=== PATIENT | male | born 1965 | race Caucasian/White ===

== ENCOUNTER 2019-01-14 17:54 | Inpatient (IN) | payer MEDICAID ==
[~2019-01-14] VITALS: Ht 149.9 cm; Wt 59.0 kg
[2019-01-14] MEDS ORDERED: ASPIRIN 81 MG TAB PO STA (18:07)
[2019-01-14] MEDS ORDERED: SOD CHLORIDE 0.9% 1,000 ML IV STA (18:07)
[2019-01-14] MEDS ORDERED: SOD CHLORIDE 0.9% 100 ML ONE (18:12)
[2019-01-14] MEDS ORDERED: IOHEXOL 100 ML ONE (18:12)
[2019-01-14] MEDS ORDERED: ALTEPLASE 100 MG INJ IV* ONE (18:30)
[2019-01-14] MEDS ORDERED: ALTEPLASE (tPA) 1 MG/ML BOLUS SYG IV* ONE (18:30)
[2019-01-14] MEDS ORDERED: SOD CHLORIDE 0.9% 50 ML IV ONE (18:30)
--- NOTE | 2019-01-14 18:50 | ERD ---
ER Documentation Chief Complaint Chief Complaint LEFT SIDED FACIAL/ARM/LEG WEAKNESS X 2 HRS HPI 54-year-old man presents with left upper extremity weakness, paresthesias to the left hemibody, and mild gait ataxia beginning about 2 hours prior to arrival. Patient denies slurred speech, no headache, no blurry vision, no complaints of chest pain or shortness of breath. Patient denies similar symptoms in the past and states symptoms began 2 hours ago spontaneously ROS All systems reviewed and are negative except as per history of present illness. Allergies Allergies: Coded Allergies: No Known Allergy (Unverified , 01/14/19) PMhx/Soc None Medical and Surgical Hx: pt denies Surgical Hx Hx Cardiac Disorders: Yes (htn) Hx Alcohol Use: No Hx Substance Use: No Hx Tobacco Use: No Smoking Status: Never smoker FmHx Family History: No diabetes Physical Exam Vitals Vital Signs Date Temp Pulse Resp B/P (MAP) Pulse Ox O2 O2 Flow FiO2 Time Delivery Rate 01/14/19 99.0 88 16 158/99 99 Room Air 18:39 (118) 01/14/19 Nasal 18:29 Cannula 01/14/19 99.0 84 16 160/88 99 18:00 (112) Physical Exam GENERAL: Well-developed, well-nourished, well-hydrated, in no apparent distress, looks nontoxic in appearance, afebrile HEENT: Moist mucous membranes, pink conjunctiva, no cervical spine tenderness or step-off deformities, no goiter, no jaundice or icterus, extraocular movements intact without pain. 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 Normoactive bowel sounds SKIN: Warm and dry to touch, no abrasions, contusions, or hematomas, no lacerations, no ecchymosis, no target lesions, and without ulcers EXTREMITIES: No clubbing cyanosis or edema, calves are bilaterally symmetrical, no Homans sign, no popliteal cord sign. Distal pulses equal and bilateral PSYCH: Normal affect without agitation or irritability Result Diagram: 01/15/19 0459 01/15/19 0459 Results 24 hrs Laboratory Tests Test 01/14/19 18:15 01/14/19 18:44 01/14/19 19:30 White Blood Count 7.6 10^3/ul Red Blood Count 5.44 10^6/ul Hemoglobin 15.8 g/dl Hematocrit 45.8 % Mean Corpuscular Volume 84.2 fl Mean Corpuscular Hemoglobin 29.0 pg Mean Corpuscular 34.5 g/dl Hemoglobin Concent Red Cell Distribution Width 12.6 % Platelet Count 287 10^3/UL Mean Platelet Volume 9.7 fl Immature Granulocytes % 0.300 % Neutrophils % 73.3 % Lymphocytes % 18.9 % Monocytes % 5.4 % Eosinophils % 1.7 % Basophils % 0.4 % Nucleated Red Blood Cells % 0.0 /100WBC Immature Granulocytes # 0.020 10^3/ul Neutrophils # 5.6 10^3/ul Lymphocytes # 1.4 10^3/ul Monocytes # 0.4 10^3/ul Eosinophils # 0.1 10^3/ul Basophils # 0.0 10^3/ul Nucleated Red Blood Cells # 0.0 10^3/ul Prothrombin Time 11.8 Sec Prothrombin Time Ratio 0.9 INR International 0.86 Normalized Ratio Activated Partial Thromboplast 25.4 Sec Time Sodium Level 139 mmol/L Potassium Level 3.6 mmol/L Chloride Level 104 mmol/L Carbon Dioxide Level 25 mmol/L Anion Gap 10 Blood Urea Nitrogen 10 mg/dl Creatinine 0.86 mg/dl Est Glomerular Filtrat > 60 mL/min Rate mL/min Glucose Level 112 mg/dl Hemoglobin A1c 5.2 % Calcium Level 9.1 mg/dl Total Bilirubin 0.5 mg/dl Direct Bilirubin 0.00 mg/dl Indirect Bilirubin 0.5 mg/dl Aspartate Amino 34 IU/L Transf (AST/SGOT) Alanine 46 IU/L Aminotransferase (ALT/SGPT) Alkaline Phosphatase 101 IU/L Creatine Kinase 99 IU/L Creatine Kinase Index 0.7 Creatinine Kinase MB (Mass) 0.66 ng/ml Troponin I < 0.012 ng/ml Total Protein 8.1 g/dl Albumin 4.5 g/dl Globulin 3.60 g/dl Albumin/Globulin Ratio 1.25 Triglycerides Level 197 mg/dl Cholesterol Level 230 mg/dl LDL Cholesterol, Calculated 159 mg/dl HDL Cholesterol 32 mg/dl Cholesterol/HDL Ratio 7.1 RATIO Ethyl Alcohol Level < 10.0 mg/dl Bedside Glucose 108 mg/dL Urine Color COLORLESS Urine Clarity CLEAR Urine pH 7.0 Urine Specific [place] 1.025 Urine Ketones NEGATIVE mg/dL Urine Nitrite NEGATIVE mg/dL Urine Bilirubin NEGATIVE mg/dL Urine Urobilinogen NEGATIVE mg/dL Urine Leukocyte Esterase NEGATIVE Quinn/ul Urine Hemoglobin NEGATIVE mg/dL Urine Glucose NEGATIVE mg/dL Urine Total Protein NEGATIVE mg/dl Urine Opiates Screen Negative Urine Barbiturates Negative Urine Amphetamines Screen Negative Urine Benzodiazepines Screen Negative Urine Cocaine Screen Negative Urine Cannabinoids Negative Current Medications Medications Dose Sig/Rima Start Time Status Last (Trade) Ordered Route PRN Stop Time Admin Dose Reason Admin Alteplase, 5.3 mg BOLUS OVER 1 01/14/19 DC Recombinant MIN ONCE 18:30 (Activase) IV* 01/14/19 18:31 Alteplase, 47.8 mg ISCHEMIC 01/14/19 DC Recombinant STROKE ONCE 18:30 (Activase) IV* 01/14/19 18:31 Sodium 50 ml @ 0 FLUSH AFTER 01/14/19 DC Chloride mls/hr TPA ONCE IV 18:30 01/14/19 18:31 Sodium 1,000 ml @ Q1H STAT 01/14/19 DC 01/14/19 Chloride 1,000 mls/hr IV 18:07 18:47 01/14/19 19:06 Aspirin 162 mg ONCE STAT 01/14/19 DC 01/14/19 (Aspirin) PO 18:07 18:46 01/14/19 18:09 IV Flush 10 ml STK-MED 01/14/19 DC (NS 10 ml) ONCE .ROUTE 18:12 01/14/19 18:13 Sodium 100 ml @ ud STK-MED 01/14/19 DC Chloride ONCE .ROUTE 18:12 01/14/19 18:13 Iohexol 100 ml @ ud STK-MED 01/14/19 DC ONCE .ROUTE 18:12 01/14/19 18:13 Procedures/MDM IV line was established patient was placed on gambling monitor rhythm strip revealed a sinus rhythm at about 80 bpm with upright P and T waves. Patient was afebrile Code stroke was called and patient was rushed to radiology department, CT scan of the brain was negative for acute bleed mass or shift. CT angiogram of the brain and neck was performed, no large vessel occlusion noted, please refer to radiologist dictation for full report. Chest X-ray 1V Interpreted by me: Soft Tissue: No acute abnormalities Bones: No acute abnormalities Mediastinum/Cardiac Silhouette/Lungs: No acute abnormalities Tele-neurology was contacted and saw the patient at the bedside, his earlier mild left-sided deficits resolved completely, neurologist calculated NIH stroke score was 0, no indication for TPA although he did recommend admission for TIA work-up. I administered aspirin 324 mg p.o. for neuro protective measures. CBC and electrolytes were normal, liver function tests are normal, troponin was negative EKG performed, read by me: 86 bpm, normal sinus rhythm, normal axis, no acute ST segment changes, narrow QRS complex, with good R-wave progression in precordial leads. Critical Care: Time: 48 minutes, this was time separate from other billable procedures. Treatments/Evaluations: Close monitoring and treatment of unstable vital signs, cardiorespiratory, and neurologic status, while maintaining tight balance of fluid, respiratory, and cardiac interventions. Patient will be admitted to telemetry setting for TIA rule out stroke and hypertension. Departure Diagnosis: Primary Impression: TIA (transient ischemic attack) Additional Impression: Hypertension Hypertension type: essential hypertension Qualified Codes: I10 - Essential (primary) hypertension Condition: MATT Appiah MD Jan 14, 2019 18:50
--- NOTE | 2019-01-14 18:53 | CONS ---
DATE OF ADMISSION: 01/14/2019 DATE OF CONSULTATION: 01/14/2019 REASON FOR CONSULTATION: I was asked to see the patient for left-sided weakness. HISTORY OF PRESENT ILLNESS: The patient is a 54-year-old male with past medical history of hypertens ion, who noticed acute onset of left-sided weakness at 4:20 local time. The patient noticed numbness of his left arm as well as weakness of his left hand, but symptoms have subsequently resolved. The patient has had no prior history of intraparenchymal hemorrhage, no prior history of stroke or TIA. The patient does feel back to his baseline. He denied any symptoms of diplopia, difficulty speaking. The patient does not take any anticoagulants. He reports no recent illness. PHYSICAL EXAMINATION: NEUROLOGIC: On assessment, the patient had a full NIH stroke scale score completed. He scored a 0. IMAGING DATA: The patient's imaging was read as normal per radiology. ASSESSMENT: This patient has had a TIA. The patient should have an aspirin 81 mg now. He should be hydrated with saline. He should have an MRI of his brain with an MRA of his neck. I would keep him on telemetry for monitoring for irregularity of heart rhythm. He should have high-dose atorvastatin 80 mg and should be followed with close neuro checks. We should be informed if he has any neurologi c changes. I communicated my findings to the emergency department physician. Dictated By: JUAN DAVID THOMSON CM/KIT Conf#: [id number] DID#: [id number]
[2019-01-14] MEDS ORDERED: hydrALAzine 20 MG INJ IV PRN (20:30)
[2019-01-14] MEDS ORDERED: DOCUSATE SODIUM 100 MG CAP PO PRN (20:30)
[2019-01-14] MEDS ORDERED: ONDANSETRON 4 MG INJ IV PRN (20:30)
[2019-01-14] MEDS ORDERED: ACETAMINOPHEN 325 MG TAB PO PRN (20:30)
[2019-01-14] MEDS ORDERED: NACL 0.9% 3 ML SYG IV SCH (20:30)
[2019-01-14] MEDS ORDERED: BISACODYL (EC) 5 MG TAB PO PRN (20:30)
[2019-01-14] MEDS ORDERED: LORAZEPAM 2 MG INJ IV PRN (20:30)
--- NOTE | 2019-01-14 20:30 | HP ---
Date/Time of Note Date/Time of Note DATE: 01/14/19 TIME: 20:29 Assessment/Plan VTE Prophylaxis SCD applied (from Nsg): Yes Pharmacological prophylaxis: NA/contraindicated Pharm contraindication: low risk/ambulating Lines/Catheters IV Catheter Type (from Nrsg): Saline Lock Assessment/Plan Hospital Course This is a 54-year-old male being admitted to the telemetry floor for: #1 left-sided numbness and weakness: Rule out CVA versus TIA. Patient's imaging studies so far negative. Patient does though report he still has numbness of the left face as well as the left upper extremity. There is some decreased rf engineer strength of the left upper extremity. At the current time we will continue the patient on permissive hypertension and treat with hydralazine for blood pressure greater than 220/120. SCDs. Will check hemoglobin A1c, lipid panel, TSH. Aspirin 81 mg and high-dose statin. Will check an echocardiogram with bubble study. Neurochecks every 4 hours. MRI of the brain and MRA of the head and neck have been ordered. PT OT speech evaluation. Will consult neurology #2 hyperlipidemia: Check lipid panel, high-dose statin #3 DVT GI prophylaxis: SCDs, no GI prophylaxis indicated Further treatment strategy will be implemented as per the clinical course. Result Diagram: 01/14/19181401/14/191814 Results 24hrs Laboratory Tests Test 01/14/19 18:15 01/14/19 18:44 01/14/19 19:30 White Blood Count 7.6 Red Blood Count 5.44 Hemoglobin 15.8 Hematocrit 45.8 Mean Corpuscular Volume 84.2 Mean Corpuscular Hemoglobin 29.0 Mean Corpuscular Hemoglobin Concent 34.5 Red Cell Distribution Width 12.6 Platelet Count 287 Mean Platelet Volume 9.7 Immature Granulocytes % 0.300 Neutrophils % 73.3 Lymphocytes % 18.9 Monocytes % 5.4 Eosinophils % 1.7 Basophils % 0.4 Nucleated Red Blood Cells % 0.0 Immature Granulocytes # 0.020 Neutrophils # 5.6 Lymphocytes # 1.4 Monocytes # 0.4 Eosinophils # 0.1 Basophils # 0.0 Nucleated Red Blood Cells # 0.0 Prothrombin Time 11.8 L Prothrombin Time Ratio 0.9 INR International Normalized Ratio 0.86 Activated Partial Thromboplast Time 25.4 Sodium Level 139 Potassium Level 3.6 Chloride Level 104 Carbon Dioxide Level 25 Anion Gap 10 Blood Urea Nitrogen 10 Creatinine 0.86 Est Glomerular Filtrat Rate mL/min > 60 Glucose Level 112 Hemoglobin A1c 5.2 Calcium Level 9.1 Total Bilirubin 0.5 Direct Bilirubin 0.00 Indirect Bilirubin 0.5 Aspartate Amino Transf (AST/SGOT) 34 Alanine Aminotransferase (ALT/SGPT) 46 Alkaline Phosphatase 101 Creatine Kinase 99 Creatine Kinase Index 0.7 Creatinine Kinase MB (Mass) 0.66 Troponin I < 0.012 Total Protein 8.1 Albumin 4.5 Globulin 3.60 H Albumin/Globulin Ratio 1.25 Triglycerides Level 197 H Cholesterol Level 230 H LDL Cholesterol, Calculated 159 HDL Cholesterol 32 Cholesterol/HDL Ratio 7.1 Ethyl Alcohol Level < 10.0 H Bedside Glucose 108 Urine Color COLORLESS Urine Clarity CLEAR Urine pH 7.0 Urine Specific [place] 1.025 Urine Ketones NEGATIVE Urine Nitrite NEGATIVE Urine Bilirubin NEGATIVE Urine Urobilinogen NEGATIVE Urine Leukocyte Esterase NEGATIVE Urine Hemoglobin NEGATIVE Urine Glucose NEGATIVE Urine Total Protein NEGATIVE Urine Opiates Screen Negative Urine Barbiturates Negative Urine Amphetamines Screen Negative Urine Benzodiazepines Screen Negative Urine Cocaine Screen Negative Urine Cannabinoids Negative HPI/ROS Admit Date/Time Admit Date/Time Hx of Present Illness Chief complaint: Left-sided facial numbness and left-sided weakness History who presented to the with symptoms of left-sided weakness that started at 4:20 PM. Patient reported that he started noticing left-sided facial numbness and upper and lower extremity weakness. He was unable to raise his arm. His symptoms though did improve. He denied any changes in his vision or any headaches.. He did report that he had some slurred speech he feels which has since improved. In the emergency department he was evaluated for a possible CVA with a code stroke. He was seen by the telemetry neurologist. CT of the head and CTA of the head did not show any acute abnormalities. Telemetry neurologist presumed patient may have had a TIA and recommended aspirin 81 mg and high-dose statin. He also recommended an MRI and MRA of the brain and neck. Urges: NKDA Medications: Unknown ROS Const: As per HPI Eyes : No pain discharge or redness or change in visual acuity ENT: No pain, sore throat, congestion, congestion, dysphagia or discharge Respiratory: No shortness of breath, cough, sputum, wheezing, or pleuritic pain Cardiovascular: No chest pain, palpitation, PND, or edema GI : no change in appetite, abdominal pain, nausea, vomiting, diarrhea, consti pation, or change in the color his stool Genitourinary: No dysuria, hematuria, flank pain , discharge or CVA tenderness Musculoskeletal: No joint pain, back pain, neck pain, restricted range of motion in neck or joints Skin: No rash, bruising or hives Neuro: As per HPI Endocrine: No polyuria, polydipsia, temperature intolerance Psych: No hallucination, depression, anxiety or suicidal ideation PMH/Family/Social Past Medical History Hyperlipidemia Coded Allergies: No Known Allergy (Unverified , 01/14/19) Past Surgical History Past Surgical Hx: no surgical history Family History Significant Family History: no pertinent family hx Social History Alcohol Use: none Smoking Status: Never smoker Drug Use: none Exam/Review of Systems Vital Signs Vitals Vital Signs Date Temp Pulse Resp B/P (MAP) Pulse Ox O2 O2 Flow FiO2 Time Delivery Rate 01/14/19 99.0 88 16 158/99 99 Room Air 18:39 (118) Exam Exam General: Pleasant male currently lying in bed in no acute distress. HEENT: Atraumatic, normocephalic. The pupils are equal, round and reactive. Extr aocular motor are intact Neck: Supple with full range of motion. No rigidity or meningismus, no tend erness to palpation of the trapezius muscles, no tenderness palpation along the cervical spine Chest: Nontender Lungs: Clear to auscultation bilaterally no crackles rales or wheezing Heart: Normal S1-S2, Regular rhythm and rate. No murmur, S3, or S4 Abdomen: Soft , nontender, nondistended , bowel sounds are present. No guarding no rebound tenderness , No masses or organomegaly. No costovertebral temporal angle mass Extremities: Normal to inspection, no edema no cyanosis Neurologic: Normal mental status, speech normal, cranial nerves II through XII are intact, patient does have decreased rf engineer strength of the left upper extremity compared to the right. He does report subjective numbness of the left side of the face and the left upper extremity. He does report thank you difference in sensation of the left upper face compared to the right face and the left upper extremity compared to the right upper extremity. Additional Comments PROCEDURE: CT Brain without contrast. CLINICAL INDICATION: Left-sided paresthesias. Code stroke. TECHNIQUE: A CT of the brain was performed on a multi-slice CT scanner utilizing axial imaging from the skull base through the vertex without IV contrast. Multiplanar reformatted images were made. Images were reviewed on a PACS workstation. One or more the following dose reduction techniques were utilized: Automated exposure control, adjustment of mA/ or kV according to patient's size, or use of iterative reconstruction technique. DICOM images are available for review. The CTDIvol is 39.6 mGy and the DLP is 634.2 mGycm. COMPARISON: None FINDINGS: There is no intracranial hemorrhage, mass effect, or midline shift. No extra- axial fluid collection is seen. The ventricles and sulci are normal in size and configuration. The density of the brain is normal, and the kurtz white matter differentiation appears well-preserved. The visualized paranasal sinuses and osseous structures are grossly unremarkable. IMPRESSION: 1. No evidence of acute intracranial pathology. 2. The brain is normal in appearance. A call report was made to Matt Murphy on 01/14/2019 6:36 PM following completion of the examination by Dr. Rosenthal. RPTAT: HJAH .Marla Rosenthal MD, MD Date Time Electronically viewed and signed by .Marla Rosenthal MD, on 01/14/2019 18:38 .H/ CC: MATT MARSH MD [id number] PROCEDURE: CTA head and neck CLINICAL INDICATION: Acute neurologic deficit. Left-sided paresthesias. TECHNIQUE: The study was performed utilizing a GE 64-slice CT scanner. Direct thin section helical 0.625 mm axial sections were obtained through the head and neck after the uneventful administration of 100 cc of Omnipaque 350 nonionic intravenous contrast material. Coronal and sagittal as well as maximal intensity projection reformations were obtained. 3-D images were made. One or more the following dose reduction techniques were utilized: Automated exposure control, adjustment of the mA/ or kV according to patient's size, or use of iterative reconstruction technique. DICOM images are available for review. DICOM images are available for review. The images were reviewed on a PACS workstation. The total CTDIvol is 32.2 and 15.1 mGy and the DLP is 584.8 mGy-cm. COMPARISON: No prior studies are available for comparison. FINDINGS: CTA NECK: The origins of the great vessels off the aortic arch are patent and normal in caliber without significant stenosis. The common carotid arteries, carotid bulbs, and internal carotid arteries are normal in appearance without significant atherosclerotic plaque or stenosis based on NASCET criteria. The vertebral arteries are also patent and normal in caliber bilaterally. There is no evidence of a hemodynamically significant stenosis or dissection. CTA BRAIN: Mild atherosclerotic plaque is seen within the intracranial carotid arteries without significant luminal irregularity are narrowing of the vessels. The middle cerebral arteries and anterior cerebral arteries are patent and normal in caliber. The intracranial vertebral arteries, basilar artery, and posterior cerebral arteries are also patent and normal in caliber without significant atherosclerotic plaque. There are no findings suspicious for intra- arterial thrombus. No aneurysm or vascular malformation is identified. IMPRESSION: Normal CT angiogram of the head and neck. A call report was made to Matt Murphy on 01/14/2019 6:36 PM following completion of the examination by Dr. Rosenthal. RPTAT: HJAH .Marla Rosenthal MD, MD Date Time Electronically viewed and signed by .Marla Rosenthal MD, MD on 01/14/2019 18:41 .H/ CC: MATT MARSH MD [id number] PROCEDURE: XR Chest AP portable CLINICAL INDICATION: Weakness TECHNIQUE: An AP portable radiograph of the chest was submitted. COMPARISON: None. FINDINGS: Support Hardware: None Cardiovascular: The cardiovascular silhouette appears unremarkable. Lung Briones: The lung briones appear clear with no nodule, alveolar infiltrate, or interstitial prominence evident. Pleural Spaces: No pneumothorax or pleural effusion is identified. Osseous Structures: The osseous structures appear intact. Soft Tissues: The soft tissues appear unremarkable. IMPRESSION: Unremarkable portable chest. George Mckee Physician Date Time Electronically viewed and signed by George Mckee Physician on 01/14/2019 19:18 RH/ CC: MATT MARSH MD [id number] ROSI MONTALVO Jan 14, 2019 20:30
[2019-01-14] MEDS: ATORVASTATIN 80 MG TAB PO SCH (21:00)
[2019-01-14 21:51] VITALS: PULSE 79
[2019-01-14 22:52] VITALS: BP 155/79; PULSE 78; RESP 18
[2019-01-14 23:14] VITALS: Ht 149.9 cm; Wt 59.0 kg
[2019-01-15] VITALS (13 sets, daily range): BP systolic 107–133; BP diastolic 67–82; PULSE 64–91; RESP 18–68
--- NOTE | 2019-01-15 10:07 | PN ---
Date/Time of Note Date/Time of Note DATE: 01/15/19 TIME: 10:07 Objective Vitals Vital Signs Date Temp Pulse Resp B/P (MAP) Pulse Ox O2 O2 Flow FiO2 Time Delivery Rate 01/15/19 97.8 78 22 121/73 96 Room Air 07:37 (89) Intake and Output 01/14/19 01/14/19 01/15/19 1515:00 23:00 07:00 IntakeIntake Total 400 ml BalanceBalance 400 ml Results Result Diagram: 01/15/19 0459 01/15/19 0459 Medications Medications Current Medications IV Flush (NS 3 ml) 3 ml PER PROTOCOL IV ; Start 01/14/19 at 20:30 Ondansetron HCl (Zofran Inj) 4 mg Q6H PRN IV NAUSEA/VOMITING; Start 01/14/19 at 20:30 Acetaminophen (Tylenol Tab) 650 mg Q6H PRN PO .PAIN 1-3 OR TEMP; Start 01/14/19 at 20:30 Docusate Sodium (Colace) 100 mg Q12H PRN PO .CONSTIPATION; Start 01/14/19 at 20:30 Bisacodyl (Dulcolax) 5 mg DAILY PRN PO .CONSTIPATION; Start 01/14/19 at 20:30 Lorazepam (Ativan) 0.5 mg ONCE PRN IV prior to MRI; Start 01/14/19 at 20:30; Stop 01/15/19 at 20:29 Hydralazine HCl (Apresoline) 10 mg Q4H PRN IV ELEVATED BLOOD PRESSURE; Start 01/14/19 at 20:30 Atorvastatin Calcium (Lipitor) 80 mg HS PO Last administered on 01/14/19at 21:00; Admin Dose 80 MG; Start 01/14/19 at 21:00 VTE Prophylaxis Risk score (from Ns)>0 risk: 1 SCD applied (from Ns): Yes Lines/Catheters IV Catheter Type: Painter in Place: No Assessment/Plan Hospital Course Subjective Patient states that some of his symptoms have gotten better however he still has some numbness in his left face and some weakness in his left upper extremity and lower extremity. Objective Physical exam General: Patient is laying in bed and answers questions appropriately Mentation: Patient is alert and oriented 4, Head: Normocephalic atraumatic Eyes: EOMI, pupils reactive to light Neck: Supple, nontender, midline Respiratory: Clear to auscultation bilaterally Cardiovascular: regular rate, no obvious murmurs Gastrointestinal: non-tender to palpation, bowel sounds heard. Neurological: Moves all extremities spontaneously, however there is left facial numbness with possible mild facial droop as well as left upper extremity and left lower extremity weakness when compared to the right. Skin: No new skin lesions Assessment and plan Left-sided numbness and weakness, facial numbness and lower extremity weakness -Rule out CVA, neurology has been consulted -No TPA per tele-neurologist, continue on aspirin and statin for now -CTa and CT head negative so far, MRI pending -PT OT -Echocardiogram -Neurology recommendations appreciated Dyslipidemia -Continue statin DVT prophylaxis, SCDs, patient is ambulatory with PT Disposition -Follow-up with neurology recommendations, complete full CVA work-up as patient possibly has CVA with new onset left-sided weakness of 1 day. MATT VIDAL Jan 15, 2019 10:07
[2019-01-15] MEDS: ASPIRIN 81 MG TAB PO SCH (10:17)
--- NOTE | 2019-01-15 14:55 | CONSI ---
Assessment/Plan Assessment/Plan Assessment/Plan (Recall) 54 M c/ reported Hx of HLD, who presents for evaluation of acute L face and arm weakness, concerning for stroke. Head CT was neg CTA H/N are normal. P: Agree w/ asa/lipitor daily Permissive HTN to 220/110 and continuous fluids through today.. Await MRI brain for further characterization (MRAs not presently indicated..) Await echo read Add ESR, RPR, HIV PT/OT/ST as necessary Other management per primary Will follow Consultation Date/Type/Reason Admit Date/Time Type of Consult Neurology Reason for Consultation left face and arm weakness Requesting Provider: ROSI MONTALVO Date/Time of Note DATE: 01/15/19 TIME: 14:48 Hx of Present Illness 54 M c/ known HLD, who presents for evaluation of acute L face and arm weakness. Never similar Sx previously.. Documented to have normalized in the ER...hence no ivTPA.. Objective Exam Vitals Vital Signs Date Temp Pulse Resp B/P (MAP) Pulse Ox O2 O2 Flow FiO2 Time Delivery Rate 01/15/19 70 12:01 01/15/19 97.8 22 133/82 96 Room Air 11:38 (99) Intake and Output 01/14/19 01/14/19 01/15/19 1515:00 23:00 07:00 IntakeIntake Total 400 ml BalanceBalance 400 ml Exam PE: Gen Appearance: No Apparent Distress HEENT: Normocephalic Cardiovascular: Regular rate Lungs: Clear bilaterally Abdomen: Soft Extremities: Dry NE: The patient was alert and oriented, able to spell WORLD backwards, and able to recall all three words after a five minute delay. Language was normal. Fund of knowledge was normal. Pupils were equal and reactive to light. There was no afferent pupillary defect. Visual vargas were normal. Funduscopic examination was limited. Extra-ocular movements were full. Ptosis was absent. There was no nystagmus. Facial sensation was normal. Face was asymmetric with decreased strength on the left. Hearing was intact. Palate movements were normal. Neck strength was normal. There was normal tongue bulk and speed of movement. Tone was normal. Muscle bulk was normal. I did not see fasciculations. Left arm was mildly weak. Vibration sensation was normal. Temperature and pinprick sensation was normal. Rapid alternating movements were normal. There was no dysmetria. There was no intention tremor. Gait was deferred due to bedrest. Arm and leg reflexes were 2+ and symmetric. Doran's sign was absent. Plantar responses were flexor. Results Result Diagram: 01/15/19 0459 01/15/19 0459 Results 24hrs Laboratory Tests Test 01/14/19 18:15 01/14/19 18:44 01/14/19 19:30 01/15/19 04:59 White Blood Count 7.6 6.2 Red Blood Count 5.44 5.24 Hemoglobin 15.8 15.3 Hematocrit 45.8 44.7 Mean Corpuscular 84.2 85.3 Volume Mean Corpuscular 29.0 29.2 Hemoglobin Mean Corpuscular 34.5 34.2 Hemoglobin Concent Red Cell 12.6 12.8 Distribution Width Platelet Count 287 252 Mean Platelet Volume 9.7 10.1 Immature 0.300 0.200 Granulocytes % Neutrophils % 73.3 59.1 Lymphocytes % 18.9 28.9 Monocytes % 5.4 7.9 Eosinophils % 1.7 3.4 Basophils % 0.4 0.5 Nucleated Red Blood 0.0 0.0 Cells % Immature 0.020 0.010 Granulocytes # Neutrophils # 5.6 3.7 Lymphocytes # 1.4 1.8 Monocytes # 0.4 0.5 Eosinophils # 0.1 0.2 Basophils # 0.0 0.0 Nucleated Red Blood 0.0 0.0 Cells # Prothrombin Time 11.8 L Prothrombin Time 0.9 Ratio INR International 0.86 Normalized Ratio Activated 25.4 Partial Thromboplast Time Sodium Level 139 142 Potassium Level 3.6 3.9 Chloride Level 104 108 Carbon Dioxide Level 25 25 Anion Gap 10 9 Blood Urea Nitrogen 10 9 Creatinine 0.86 0.84 Est Glomerular > 60 > 60 Filtrat Rate mL/min Glucose Level 112 96 Hemoglobin A1c 5.2 Calcium Level 9.1 8.8 Total Bilirubin 0.5 1.0 Direct Bilirubin 0.00 0.00 Indirect Bilirubin 0.5 1.0 Aspartate Amino 34 38 Transf (AST/SGOT) Alanine 46 39 Aminotransferase (AL T/SGPT) Alkaline Phosphatase 101 82 Creatine Kinase 99 Creatine Kinase 0.7 Index Creatinine Kinase MB 0.66 (Mass) Troponin I < 0.012 Total Protein 8.1 6.8 # Albumin 4.5 3.9 Globulin 3.60 H 2.90 Albumin/Globulin 1.25 1.34 Ratio Triglycerides Level 197 H Cholesterol Level 230 H LDL Cholesterol, 159 Calculated HDL Cholesterol 32 Cholesterol/HDL 7.1 Ratio Ethyl Alcohol Level < 10.0 H Bedside Glucose 108 Urine Color COLORLESS Urine Clarity CLEAR Urine pH 7.0 Urine Specific 1.025 Porter Urine Ketones NEGATIVE Urine Nitrite NEGATIVE Urine Bilirubin NEGATIVE Urine Urobilinogen NEGATIVE Urine Leukocyte NEGATIVE Esterase Urine Hemoglobin NEGATIVE Urine Glucose NEGATIVE Urine Total Protein NEGATIVE Urine Opiates Screen Negative Urine Barbiturates Negative Urine Amphetamines Negative Screen Urine Negative Benzodiazepines Screen Urine Cocaine Screen Negative Urine Cannabinoids Negative Thyroid Stimulating 1.670 Hormone (TSH) Past Medical History reviewed Medications Current Medications IV Flush (NS 3 ml) 3 ml PER PROTOCOL IV ; Start 01/14/19 at 20:30 Ondansetron HCl (Zofran Inj) 4 mg Q6H PRN IV NAUSEA/VOMITING; Start 01/14/19 at 20:30 Acetaminophen (Tylenol Tab) 650 mg Q6H PRN PO .PAIN 1-3 OR TEMP; Start 01/14/19 at 20:30 Docusate Sodium (Colace) 100 mg Q12H PRN PO .CONSTIPATION; Start 01/14/19 at 20:30 Bisacodyl (Dulcolax) 5 mg DAILY PRN PO .CONSTIPATION; Start 01/14/19 at 20:30 Lorazepam (Ativan) 0.5 mg ONCE PRN IV prior to MRI; Start 01/14/19 at 20:30; Stop 01/15/19 at 20:29 Hydralazine HCl (Apresoline) 10 mg Q4H PRN IV ELEVATED BLOOD PRESSURE; Start 01/14/19 at 20:30 Atorvastatin Calcium (Lipitor) 80 mg HS PO Last administered on 01/14/19at 21:00; Admin Dose 80 MG; Start 01/14/19 at 21:00 Aspirin (Aspirin) 81 mg DAILY PO Last administered on 01/15/19at 10:17; Admin Dose 81 MG; Start 01/15/19 at 10:00 Allergies: Coded Allergies: No Known Allergy (Unverified , 01/14/19) Past Surgical History Past Surgical Hx: no surgical history Social History Alcohol Use: none Smoking Status: Never smoker Drug Use: none DINA ELDRIDGE Jan 15, 2019 14:55
[2019-01-15] MEDS: SOD CHLORIDE 0.9% 1,000 ML IV SCH (17:57)
[2019-01-15] MEDS: ATORVASTATIN 80 MG TAB PO SCH (20:28)
--- NOTE | 2019-01-15 20:40 | RADRPT ---
Echocardiogram Report Patient Name: Connor PUGAtient ID: [id number] : 1965 (54y )Study Date: 01/15/2019 8:24:18 AM Gender: Alysoncession #: [id number] Tech: Fly Currie [facility] Location: [address] Ref.Physician: ROSI MONTALVO Height(Cm): BSA: Weight(Kg): Quality: AdequateOrder Physician: ROSI MONTALVO Account #: Procedures: Echocardiographic Report: Transthoracic echocardiogram with complete 2D, M-Mode, and doppler examination. Indications: Transient Ischemic Attack w/ bubble study. Measurements: 2D/M Mode Doppler Measurement Value Normal Range Measurement Value Normal Range LVIDd 2D 4.3 [ 4.2 - 5.8 ] cm AV Peak Irwin 1.3 [ 100.0 - 170.0 ] cm/sec LVIDs 2D 3.0 [ 2.5 - 4.0 ] cm AV Peak PG 7.0 [ 2.0 - 9.0 ] mmHg LVPWd 2D 0.6 [ 0.6 - 1.0 ] cm LVOT Peak Irwin 0.8 [ 70.0 - 110.0 ] cm/sec IVSd 2D 1.0 [ 0.6 - 1.0 ] cm LVOT Peak PG 3.0 [ 2.0 - 6.0 ] mmHg AoR Diam 2D 2.2 [ 2.6 - 3.4 ] cm MV E Peak Irwin 0.5 [ 60.0 - 130.0 ] cm/sec EDV 2D 83.5 [ 62.0 - 150.0 ] ml MV A Peak Irwin 0.6 [ 100.0 - 120.0 ] cm/sec ESV 2D 33.6 [ 21.0 - 61.0 ] ml MV E/A 0.8 [ 0.8 - 1.5 ] ratio EF 2D 59.8 [ 52.0 - 72.0 ] percent MV Decel Time 250 [ 104 - 258 ] msec LA Dimen 2D 3.2 [ 3.0 - 4.0 ] cm Lat E` Irwin 0.1 [ 10.0 - 15.0 ] cm/sec Lateral E/E` 4.6 [ 1.0 - 2.0 ] ratio Med E` Irwin 0.1 cm/sec MV E/A 0.8 [ 0.8 - 1.5 ] ratio TR Peak Irwin 2.4 [ 100.0 - 280.0 ] cm/sec TR Peak PG 23.0 mmHg RVSP 26.0 [ 10.0 - 36.0 ] mmHg Findings: Left Ventricle: Normal left ventricular systolic function. Normal left ventricular cavity size. Normal left ventricular wall thickness. Ejection fraction is visually estimated at 55-60 %. Tissue Doppler/Mitral Doppler indices are consistent with impaired relaxation (Stage I diastolic dysfunction). Right Ventricle: Normal right ventricular size. Normal right ventricular systolic function. Left Atrium: The left atrium is normal in size. Right Atrium: The right atrium is normal in size. Atrial Septum: Bubble study was performed with and with out valsalva indicating no evidence of intra atrial shunt. Mitral Valve: Mild mitral leaflet calcification. Mild mitral annular calcification. Trace mitral regurgitation. Aortic Valve: No significant aortic stenosis or insufficiency. Aortic cusps appear mildly calcified. Tricuspid Valve: Normal appearance of the tricuspid valve. The estimated Peak RVSP is 26 mmHg. There is trace tricuspid regurgitation. Pericardium: Normal pericardium with no significant pericardial effusion. Aorta: Normal aortic root. IVC: Normal size and normal respiratory collapse consistent with normal right atrial pressure. Conclusions: Normal left ventricular systolic function. Normal left ventricular cavity size. Normal left ventricular wall thickness. Ejection fraction is visually estimated at 55-60 %. Tissue Doppler/Mitral Doppler indices are consistent with impaired relaxation (Stage I diastolic dysfunction). ). Bubble study was performed with and with out valsalva indicating no evidence of intra atrial shunt. Mild mitral leaflet calcification. Mild mitral annular calcification. Trace mitral regurgitation. Normal appearance of the tricuspid valve. The estimated Peak RVSP is 26 mmHg. There is trace tricuspid regurgitation. Electronically Signed By: Clayton Hector 2019-01-15 20:38:40 PDT
[2019-01-16] VITALS (11 sets, daily range): BP systolic 112–131; BP diastolic 65–81; PULSE 61–88; RESP 18–22
[2019-01-16] MEDS: ASPIRIN 81 MG TAB PO SCH (08:45)
--- NOTE | 2019-01-16 12:55 | PN ---
Date/Time of Note Date/Time of Note DATE: 01/16/19 TIME: 12:50 Objective Vitals Vital Signs Date Temp Pulse Resp B/P (MAP) Pulse Ox O2 O2 Flow FiO2 Time Delivery Rate 01/16/19 82 12:11 01/16/19 98.2 20 122/72 96 Room Air 11:37 (89) Intake and Output 01/15/19 01/15/19 01/16/19 1515:00 23:00 07:00 IntakeIntake Total 930 ml 750 ml OutputOutput Total 800 ml BalanceBalance 930 ml -50 ml Results Result Diagram: 01/16/19 0507 01/16/19 0507 Medications Medications Current Medications IV Flush (NS 3 ml) 3 ml PER PROTOCOL IV ; Start 01/14/19 at 20:30 Ondansetron HCl (Zofran Inj) 4 mg Q6H PRN IV NAUSEA/VOMITING; Start 01/14/19 at 20:30 Acetaminophen (Tylenol Tab) 650 mg Q6H PRN PO .PAIN 1-3 OR TEMP; Start 01/14/19 at 20:30 Docusate Sodium (Colace) 100 mg Q12H PRN PO .CONSTIPATION; Start 01/14/19 at 20:30 Bisacodyl (Dulcolax) 5 mg DAILY PRN PO .CONSTIPATION; Start 01/14/19 at 20:30 Hydralazine HCl (Apresoline) 10 mg Q4H PRN IV ELEVATED BLOOD PRESSURE; Start 01/14/19 at 20:30 Atorvastatin Calcium (Lipitor) 80 mg HS PO Last administered on 01/15/19at 20:28; Admin Dose 80 MG; Start 01/14/19 at 21:00 Aspirin (Aspirin) 81 mg DAILY PO Last administered on 01/16/19at 08:45; Admin Dose 81 MG; Start 01/15/19 at 10:00 Sodium Chloride 1,000 ml @ 50 mls/hr Q20H IV Last administered on 01/15/19at 17:57; Admin Dose 50 MLS/HR; Start 01/15/19 at 18:00; Stop 01/16/19 at 13:59 VTE Prophylaxis Risk score (from Ns)>0 risk: 1 SCD applied (from Ns): No SCD contraindication: other Lines/Catheters IV Catheter Type: Painter in Place: No Assessment/Plan Hospital Course Subjective Patient still states that his left upper extremity weakness and left facial numbness has not changed since initial onset of arriving in ED however he did notice significant improvement in his left lower extremity to near baseline Objective Physical exam General: Patient is laying in bed and answers questions appropriately Mentation: Patient is alert and oriented 4, Head: Normocephalic atraumatic Eyes: EOMI, pupils reactive to light Neck: Supple, nontender, midline Respiratory: Clear to auscultation bilaterally Cardiovascular: regular rate, no obvious murmurs Gastrointestinal: non-tender to palpation, bowel sounds heard. Neurological: No focal deficit on right upper extremity or right lower extremity. Left lower extremity near identical strength to right lower extremity, left upper extremity has moderate to severe deficits with turntable man strength and movement when compared to the right, no loss of sensation however. Patient does have a decrease in sensation on the left side of the face with mild asymmetry. 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 -No TPA per tele-neurologist on arrival, of note H&P from admitting physician state there was persistent left upper extremity weakness, continue on aspirin and statin for now -CTa and CT head negative so far, MRI showing CVA -PT OT -Echocardiogram -Neurology recommendations appreciated -Aspirin statin Dyslipidemia -Continue statin DVT prophylaxis, SCDs, patient is ambulatory with PT Disposition -Acute rehab evaluation MATT VIDAL Jan 16, 2019 12:55
[2019-01-16] MEDS: SOD CHLORIDE 0.9% 1,000 ML IV SCH (13:17)
--- NOTE | 2019-01-16 13:33 | CONS ---
Assessment/Plan Assessment/Plan Assessment/Plan (Recall) 54 M c/ reported Hx of HLD, who presents for evaluation of acute L face and arm weakness, concerning for stroke. MRI brain confirmed an acute R lipscomb radiata infarction. CTA H/N are normal. TTE is unrevealing. HIV neg; RPR nr, ESR 6 P: Agree w/ asa/lipitor daily PT/OT/ST as necessary, with d/c to acute rehab if able Other management and supportive care per primary Consultation Date/Type/Reason Admit Date/Time Jan 14, 2019 at 20:19 Type of Consult Neurology Reason for Consultation left face and arm weakness Requesting Provider: ROSI MONTALVO Date/Time of Note DATE: 01/16/19 TIME: 13:31 24 HR Interval Summary Free Text/Dictation s/p MRI brain Exam/Review of Systems Exam Vitals Vital Signs Date Temp Pulse Resp B/P (MAP) Pulse Ox O2 O2 Flow FiO2 Time Delivery Rate 01/16/19 82 12:11 01/16/19 98.2 20 122/72 96 Room Air 11:37 (89) Intake and Output 01/15/19 01/15/19 01/16/19 1515:00 23:00 07:00 IntakeIntake Total 930 ml 750 ml OutputOutput Total 800 ml BalanceBalance 930 ml -50 ml Results Result Diagram: 01/16/19 0507 01/16/19 0507 Results 24hrs Laboratory Tests Test 01/15/19 15:57 01/16/19 05:07 Erythrocyte Sedimentation Rate 6 White Blood Count 6.8 Red Blood Count 5.73 Hemoglobin 16.5 Hematocrit 49.0 Mean Corpuscular Volume 85.5 Mean Corpuscular Hemoglobin 28.8 L Mean Corpuscular Hemoglobin Concent 33.7 Red Cell Distribution Width 13.0 Platelet Count 271 Mean Platelet Volume 10.1 Immature Granulocytes % 0.300 Neutrophils % 54.8 Lymphocytes % 34.3 Monocytes % 7.2 Eosinophils % 3.1 Basophils % 0.3 Nucleated Red Blood Cells % 0.0 Immature Granulocytes # 0.020 Neutrophils # 3.8 Lymphocytes # 2.3 Monocytes # 0.5 Eosinophils # 0.2 Basophils # 0.0 Nucleated Red Blood Cells # 0.0 Sodium Level 140 Potassium Level 4.1 Chloride Level 107 Carbon Dioxide Level 25 Anion Gap 8 Blood Urea Nitrogen 15 Creatinine 0.93 Est Glomerular Filtrat Rate mL/min > 60 Glucose Level 100 Calcium Level 9.0 Phosphorus Level 3.6 Magnesium Level 2.2 Medications Medication Current Medications IV Flush (NS 3 ml) 3 ml PER PROTOCOL IV ; Start 01/14/19 at 20:30 Ondansetron HCl (Zofran Inj) 4 mg Q6H PRN IV NAUSEA/VOMITING; Start 01/14/19 at 20:30 Acetaminophen (Tylenol Tab) 650 mg Q6H PRN PO .PAIN 1-3 OR TEMP; Start 01/14/19 at 20:30 Docusate Sodium (Colace) 100 mg Q12H PRN PO .CONSTIPATION; Start 01/14/19 at 20:30 Bisacodyl (Dulcolax) 5 mg DAILY PRN PO .CONSTIPATION; Start 01/14/19 at 20:30 Hydralazine HCl (Apresoline) 10 mg Q4H PRN IV ELEVATED BLOOD PRESSURE; Start 01/14/19 at 20:30 Atorvastatin Calcium (Lipitor) 80 mg HS PO Last administered on 01/15/19at 20:28; Admin Dose 80 MG; Start 01/14/19 at 21:00 Aspirin (Aspirin) 81 mg DAILY PO Last administered on 01/16/19at 08:45; Admin Dose 81 MG; Start 01/15/19 at 10:00 Sodium Chloride 1,000 ml @ 50 mls/hr Q20H IV Last administered on 01/16/19at 13:17; Admin Dose 50 MLS/HR; Start 01/15/19 at 18:00; Stop 01/16/19 at 13:59 DINA ELDRIDGE 18, 2019 13:33
[2019-01-16] MEDS: ATORVASTATIN 80 MG TAB PO SCH (20:18)
[2019-01-17] VITALS (11 sets, daily range): BP systolic 117–135; BP diastolic 74–82; PULSE 61–94; RESP 17–20
[2019-01-17] MEDS: ASPIRIN 81 MG TAB PO SCH (09:07)
--- NOTE | 2019-01-17 13:14 | CONS ---
Assessment/Plan Assessment/Plan Assessment/Plan (Recall) 54 M c/ reported Hx of HLD, who presents for evaluation of acute L face and arm weakness, concerning for stroke. MRI brain confirmed an acute R lipscomb radiata infarction. CTA H/N are normal. TTE is unrevealing. HIV neg; RPR nr, ESR 6 P: Agree w/ asa/lipitor daily PT/OT/ST as necessary, with d/c to acute rehab if able Other management and supportive care per primary Consultation Date/Type/Reason Admit Date/Time Jan 14, 2019 at 20:19 Type of Consult Neurology Reason for Consultation left face and arm weakness Requesting Provider: ROSI MONTALVO Date/Time of Note DATE: 01/17/19 TIME: 13:12 24 HR Interval Summary Free Text/Dictation Continues acute care Exam/Review of Systems Exam Vitals Vital Signs Date Temp Pulse Resp B/P (MAP) Pulse Ox O2 O2 Flow FiO2 Time Delivery Rate 01/17/19 76 12:19 01/17/19 98.2 20 128/77 96 Room Air 11:23 (94) Intake and Output 01/16/19 01/16/19 01/17/19 1515:00 23:00 07:00 IntakeIntake Total 800 ml 650 ml OutputOutput Total 1450 ml 200 ml BalanceBalance -650 ml 450 ml Exam PE: Gen Appearance: No Apparent Distress HEENT: Normocephalic Cardiovascular: Regular rate Lungs: Clear bilaterally Abdomen: Soft Extremities: Dry NE: The patient was alert and oriented, able to spell WORLD backwards, and able to recall all three words after a five minute delay. Language was normal. Fund of knowledge was normal. Pupils were equal and reactive to light. There was no afferent pupillary defect. Visual vargas were normal. Funduscopic examination was limited. Extra-ocular movements were full. Ptosis was absent. There was no nystagmus. Facial sensation was normal. Face was symmetric with normal strength. Hearing was intact. Palate movements were normal. Neck strength was normal. There was normal tongue bulk and speed of movement. Tone was normal. Muscle bulk was normal. I did not see fasciculations. L arm was plegic. Vibration sensation was normal. Temperature and pinprick sensation was normal. Rapid alternating movements were normal. There was no dysmetria. There was no intention tremor. Gait was deferred due to bedrest. Arm and leg reflexes were brisk on the left. Doran's sign was absent. Plantar response was extensor on the left. Results Result Diagram: 01/17/19 0509 01/17/19 0509 Results 24hrs Laboratory Tests Test 01/17/19 05:09 White Blood Count 7.5 Red Blood Count 5.72 Hemoglobin 16.7 Hematocrit 48.9 Mean Corpuscular Volume 85.5 Mean Corpuscular Hemoglobin 29.2 Mean Corpuscular Hemoglobin Concent 34.2 Red Cell Distribution Width 12.6 Platelet Count 267 Mean Platelet Volume 10.1 Immature Granulocytes % 0.300 Neutrophils % 64.7 Lymphocytes % 27.2 Monocytes % 6.2 Eosinophils % 1.5 Basophils % 0.1 Nucleated Red Blood Cells % 0.0 Immature Granulocytes # 0.020 Neutrophils # 4.9 Lymphocytes # 2.1 Monocytes # 0.5 Eosinophils # 0.1 Basophils # 0.0 Nucleated Red Blood Cells # 0.0 Sodium Level 141 Potassium Level 4.1 Chloride Level 104 Carbon Dioxide Level 26 Anion Gap 11 Blood Urea Nitrogen 18 Creatinine 0.90 Est Glomerular Filtrat Rate mL/min > 60 Glucose Level 99 Calcium Level 9.1 Phosphorus Level 3.9 Magnesium Level 2.2 Medications Medication Current Medications IV Flush (NS 3 ml) 3 ml PER PROTOCOL IV ; Start 01/14/19 at 20:30 Ondansetron HCl (Zofran Inj) 4 mg Q6H PRN IV NAUSEA/VOMITING; Start 01/14/19 at 20:30 Acetaminophen (Tylenol Tab) 650 mg Q6H PRN PO .PAIN 1-3 OR TEMP; Start 01/14/19 at 20:30 Docusate Sodium (Colace) 100 mg Q12H PRN PO .CONSTIPATION; Start 01/14/19 at 20:30 Bisacodyl (Dulcolax) 5 mg DAILY PRN PO .CONSTIPATION; Start 01/14/19 at 20:30 Hydralazine HCl (Apresoline) 10 mg Q4H PRN IV ELEVATED BLOOD PRESSURE; Start 01/14/19 at 20:30 Atorvastatin Calcium (Lipitor) 80 mg HS PO Last administered on 01/16/19at 20:18; Admin Dose 80 MG; Start 01/14/19 at 21:00 Aspirin (Aspirin) 81 mg DAILY PO Last administered on 01/17/19at 09:07; Admin Dose 81 MG; Start 01/15/19 at 10:00 DINA ELDRIDGE Jan 17, 2019 13:14
--- NOTE | 2019-01-17 13:32 | PN ---
Date/Time of Note Date/Time of Note DATE: 01/17/19 TIME: 13:31 Objective Vitals Vital Signs Date Temp Pulse Resp B/P (MAP) Pulse Ox O2 O2 Flow FiO2 Time Delivery Rate 01/17/19 76 12:19 01/17/19 98.2 20 128/77 96 Room Air 11:23 (94) Intake and Output 01/16/19 01/16/19 01/17/19 1515:00 23:00 07:00 IntakeIntake Total 800 ml 650 ml OutputOutput Total 1450 ml 200 ml BalanceBalance -650 ml 450 ml Results Result Diagram: 01/17/19 0509 01/17/19 0509 Medications Medications Current Medications IV Flush (NS 3 ml) 3 ml PER PROTOCOL IV ; Start 01/14/19 at 20:30 Ondansetron HCl (Zofran Inj) 4 mg Q6H PRN IV NAUSEA/VOMITING; Start 01/14/19 at 20:30 Acetaminophen (Tylenol Tab) 650 mg Q6H PRN PO .PAIN 1-3 OR TEMP; Start 01/14/19 at 20:30 Docusate Sodium (Colace) 100 mg Q12H PRN PO .CONSTIPATION; Start 01/14/19 at 20:30 Bisacodyl (Dulcolax) 5 mg DAILY PRN PO .CONSTIPATION; Start 01/14/19 at 20:30 Hydralazine HCl (Apresoline) 10 mg Q4H PRN IV ELEVATED BLOOD PRESSURE; Start 01/14/19 at 20:30 Atorvastatin Calcium (Lipitor) 80 mg HS PO Last administered on 01/16/19at 20:18; Admin Dose 80 MG; Start 01/14/19 at 21:00 Aspirin (Aspirin) 81 mg DAILY PO Last administered on 01/17/19at 09:07; Admin Dose 81 MG; Start 01/15/19 at 10:00 VTE Prophylaxis Risk score (from Nsg)>0 risk: 1 SCD applied (from Nsg): No SCD contraindication: other Lines/Catheters IV Catheter Type: Painter in Place: No Assessment/Plan Hospital Course Subjective Patient has no change in his left upper extremity, no acute complaints overnight Objective Physical exam General: Patient is laying in bed and answers questions appropriately Mentation: Patient is alert and oriented 4, Head: Normocephalic atraumatic Eyes: EOMI, pupils reactive to light Neck: Supple, nontender, midline Respiratory: Clear to auscultation bilaterally Cardiovascular: regular rate, no obvious murmurs Gastrointestinal: non-tender to palpation, bowel sounds heard. Neurological: No focal deficit on right upper extremity or right lower extremity. Left lower extremity near identical strength to right lower extremity, left upper extremity has moderate to severe deficits with label operator strength and movement when compared to the right, no loss of sensation however. Patient does have a decrease in sensation on the left side of the face with mild asymmetry. 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 -No TPA per tele-neurologist on arrival, of note H&P from admitting physician state there was persistent left upper extremity weakness, continue on aspirin and statin for now -CTa and CT head negative so far, MRI showing CVA -PT OT -Echocardiogram -Neurology recommendations appreciated -Aspirin statin Dyslipidemia -Continue statin DVT prophylaxis, SCDs, patient is ambulatory with PT Disposition -Acute rehab evaluation, will need to look for other rehab facilities as [facility] has refused patient. MATT VIDAL Jan 17, 2019 13:32
[2019-01-17] MEDS: ATORVASTATIN 80 MG TAB PO SCH (21:27)
[2019-01-18] VITALS (10 sets, daily range): BP systolic 104–122; BP diastolic 63–77; PULSE 64–89; RESP 18–20
[2019-01-18] MEDS: ASPIRIN 81 MG TAB PO SCH (09:22)
[2019-01-18] MEDS ORDERED: ATOR-2 PO (10:22)
[2019-01-18] MEDS ORDERED: ASPI-831 PO (10:22)
--- NOTE | 2019-01-18 10:24 | PDOCDIS ---
Discharge Instructions CONDITION [id number] Patient Condition: [id number] Stable FOLLOW UP/APPOINTMENTS Follow-up Plan 1. You have been diagnosed with an acute stroke in the right coronary radiata, you must follow-up with your primary care provider to get a referral to a neurologist as soon as possible 2. Please continue 81 mg aspirin and atorvastatin 80 mg daily until you are told to be stopped by your physician 3. Please work with home health physical therapy as much as possible. MATT VIDAL Jan 18, 2019 10:24
--- NOTE | 2019-01-18 10:46 | DS ---
Date/Time of Note Date/Time of Note DATE: 01/18/19 TIME: 10:46 Discharge Summary Admission/Discharge Info Admit Date/Time Jan 14, 2019 at 20:19 Discharge Date/Time Patient Condition: Stable Hospital Course Patient is a male with no sniffing past medical history who presented to [facility] for strokelike symptoms. Patient was seen in the ED and by tele-neurologist but upon evaluation did not receive TPA. Patient continued to have left upper extremity paralysis however his left lower extremity weakness did significantly improve. Patient was seen by neurologist which she recommended patient to be placed on aspirin and statin to follow-up in the outpatient setting followed with physical therapy. Due to patient's left upper extremity paralysis extensive attempts were made to find patient to be placed in inpatient rehab program however after multiple attempts, patient was rejected for multiple inpatient rehabilitation centers. Patient will be sent home with home health physical therapy and Occupational Therapy with prescriptions for aspirin and atorvastatin. Patient knows to follow-up with his primary care provider and to have a referral to a neurologist as soon as possible. Patient be discharged when hemiwalker is available. Discharge diagnosis Acute CVA, right lipscomb radiata Dyslipidemia Left upper extremity weakness Left lower extremity weakness, resolving Home Meds Active Scripts Aspirin (Aspirin) 81 Mg Chew, 81 MG PO DAILY for 30 Days, #30 TAB 4 Refills Prov:MATT VIDAL 01/18/19 Atorvastatin* (Atorvastatin*) 80 Mg Tablet, 80 MG PO HS for 30 Days, #30 TAB 4 Refills Prov:MATT VIDAL 01/18/19 Follow-up Plan 1. You have been diagnosed with an acute stroke in the right coronary radiata, you must follow-up with your primary care provider to get a referral to a neurologist as soon as possible 2. Please continue 81 mg aspirin and atorvastatin 80 mg daily until you are told to be stopped by your physician 3. Please work with home health physical therapy as much as possible. Primary Care Provider Care Physician No Primary Time spent on discharge: > 30 minutes Pending Labs Laboratory Tests Test 01/18/19 04:49 White Blood Count 9.4 10^3/ul (4.8-10.8) Red Blood Count 5.77 10^6/ul (4.70-6.10) Hemoglobin 16.7 g/dl (14.0-18.0) Hematocrit 49.3 % (42.0-52.0) Mean Corpuscular Volume 85.4 fl (82.0-101.0) Mean Corpuscular Hemoglobin 28.9 pg (29.0-33.0) Mean Corpuscular Hemoglobin Concent 33.9 g/dl (32.0-37.0) Red Cell Distribution Width 12.7 % (11.5-14.5) Platelet Count 268 10^3/UL (140-415) Mean Platelet Volume 10.1 fl (7.4-10.4) Immature Granulocytes % 0.300 % (0.001-0.429) Neutrophils % 66.2 % (39.0-77.0) Lymphocytes % 23.8 % (15.0-51.0) Monocytes % 7.2 % (0.0-11.0) Eosinophils % 2.3 % (0.0-7.0) Basophils % 0.2 % (0.0-2.0) Nucleated Red Blood Cells % 0.0 /100WBC (0.0-0.0) Immature Granulocytes # 0.030 10^3/ul (0.0-0.031) Neutrophils # 6.2 10^3/ul (1.6-7.5) Lymphocytes # 2.2 10^3/ul (0.8-2.9) Monocytes # 0.7 10^3/ul (0.3-0.9) Eosinophils # 0.2 10^3/ul (0.0-0.5) Basophils # 0.0 10^3/ul (0.0-0.1) Nucleated Red Blood Cells # 0.0 10^3/ul (0.0-0.0) Sodium Level 143 mmol/L (135-144) Potassium Level 3.9 mmol/L (3.5-5.1) Chloride Level 105 mmol/L (97-110) Carbon Dioxide Level 25 mmol/L (21-31) Anion Gap 13 (5-13) Blood Urea Nitrogen 17 mg/dl (7-20) Creatinine 0.93 mg/dl (0.61-1.24) Est Glomerular Filtrat Rate mL/min > 60 mL/min (>60) Glucose Level 90 mg/dl (70-220) Calcium Level 9.2 mg/dl (8.4-10.2) Phosphorus Level 4.5 mg/dl (2.5-4.9) Magnesium Level 2.3 mg/dl (1.7-2.5) MATT VIDAL Jan 18, 2019 10:46
--- NOTE | 2019-01-18 11:11 | CONS ---
Assessment/Plan Assessment/Plan Assessment/Plan (Recall) 54 M c/ reported Hx of HLD, who presents for evaluation of acute L face and arm weakness, concerning for stroke. MRI brain confirmed an acute R lipscomb radiata infarction. CTA H/N are normal. TTE is unrevealing. 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 Other management and supportive care per primary Consultation Date/Type/Reason Admit Date/Time Jan 14, 2019 at 20:19 Type of Consult Neurology Reason for Consultation left face and arm weakness Requesting Provider: ROSI MONTALVO Date/Time of Note DATE: 01/18/19 TIME: 11:11 24 HR Interval Summary Free Text/Dictation Continues acute care Exam/Review of Systems Exam Vitals Vital Signs Date Temp Pulse Resp B/P (MAP) Pulse Ox O2 O2 Flow FiO2 Time Delivery Rate 01/18/19 98.7 79 20 109/63 95 Room Air 11:09 (78) Intake and Output 01/17/19 01/17/19 01/18/19 1515:00 23:00 07:00 IntakeIntake Total 800 ml 750 ml OutputOutput Total 550 ml 950 ml BalanceBalance -550 ml -150 ml 750 ml Results Result Diagram: 01/18/1944801/18/19448 Results 24hrs Laboratory Tests Test 01/18/19 04:49 White Blood Count 9.4 # Red Blood Count 5.77 Hemoglobin 16.7 Hematocrit 49.3 Mean Corpuscular Volume 85.4 Mean Corpuscular Hemoglobin 28.9 L Mean Corpuscular Hemoglobin Concent 33.9 Red Cell Distribution Width 12.7 Platelet Count 268 Mean Platelet Volume 10.1 Immature Granulocytes % 0.300 Neutrophils % 66.2 Lymphocytes % 23.8 Monocytes % 7.2 Eosinophils % 2.3 Basophils % 0.2 Nucleated Red Blood Cells % 0.0 Immature Granulocytes # 0.030 Neutrophils # 6.2 Lymphocytes # 2.2 Monocytes # 0.7 Eosinophils # 0.2 Basophils # 0.0 Nucleated Red Blood Cells # 0.0 Sodium Level 143 Potassium Level 3.9 Chloride Level 105 Carbon Dioxide Level 25 Anion Gap 13 Blood Urea Nitrogen 17 Creatinine 0.93 Est Glomerular Filtrat Rate mL/min > 60 Glucose Level 90 Calcium Level 9.2 Phosphorus Level 4.5 Magnesium Level 2.3 Medications Medication Current Medications IV Flush (NS 3 ml) 3 ml PER PROTOCOL IV ; Start 01/14/19 at 20:30 Ondansetron HCl (Zofran Inj) 4 mg Q6H PRN IV NAUSEA/VOMITING; Start 01/14/19 at 20:30 Acetaminophen (Tylenol Tab) 650 mg Q6H PRN PO .PAIN 1-3 OR TEMP; Start 01/14/19 at 20:30 Docusate Sodium (Colace) 100 mg Q12H PRN PO .CONSTIPATION; Start 01/14/19 at 20:30 Bisacodyl (Dulcolax) 5 mg DAILY PRN PO .CONSTIPATION; Start 01/14/19 at 20:30 Hydralazine HCl (Apresoline) 10 mg Q4H PRN IV ELEVATED BLOOD PRESSURE; Start 01/14/19 at 20:30 Atorvastatin Calcium (Lipitor) 80 mg HS PO Last administered on 01/17/19at 21:27; Admin Dose 80 MG; Start 01/14/19 at 21:00 Aspirin (Aspirin) 81 mg DAILY PO Last administered on 01/18/19at 09:22; Admin Dose 81 MG; Start 01/15/19 at 10:00 DINA ELDRIDGE Jan 18, 2019 11:11
== END 2019-01-18 19:45 | disposition home health service (06) | DRG 65 ==
LOC: E/R 17:54 → 6WM 20:19
PROVIDERS: ADMIT Family Medicine; ATTEND Internal Medicine
DX: I63.89 Other cerebral infarction (principal); G81.94 Hemiplegia, unspecified affecting left nondominant side; E78.5 Hyperlipidemia, unspecified; R29.810 Facial weakness
CPT/HCPCS: 36415; 70450; 70496; 70498; 70551; 71045; 80048; 80053; 80061; 80307; 81003; 82550; 82553; 82962; 83036; 83735; 84100; 84443; 84484; 85025; 85610; 85651; 85730; 86592; 86703; 86850; 86900; 86901; 92610; 93005; 93306; 97110; 97116; 97162; 97165; 97530; 97535; J2997; J7030; Q9967

== ENCOUNTER 2019-03-31 11:50 | Emergency (ER) | payer MEDICAID ==
[~2019-03-31] VITALS: Wt 55.7 kg
[~2019-03-31 11:50] MED LIST: ASPI-831 PO; ATOR-2 PO
[2019-03-31] MEDS ORDERED: ASPIRIN 325 MG TAB PO STA (13:16)
[2019-03-31] MEDS ORDERED: SOD CHLORIDE 0.9% 1,000 ML IV STA (15:21)
[2019-03-31] MEDS ORDERED: IOHEXOL 100 ML ONE (16:19)
[2019-03-31] MEDS ORDERED: SOD CHLORIDE 0.9% 100 ML ONE (16:19)
[2019-03-31 19:57] VITALS: BP 111/69; PULSE 67; RESP 18
== END 2019-03-31 20:04 | disposition home or self-care (01) ==
LOC: E/R 11:50
DX: I10 Essential (primary) hypertension (principal); Z79.82 Long term (current) use of aspirin; Z86.79 Personal history of other diseases of the circulatory system
CPT/HCPCS: 36415; 71045; 71275; 80048; 82550; 82553; 84484; 85025; 85378; 93005; 96360; 96361; J7030; Q9967; Z7502; Z7610